=== PATIENT | female | born 1965 ===

== ENCOUNTER 2019-02-28 10:52 | Outpatient (CLI) | payer OTHER | END 2019-02-28 17:13 | disposition home or self-care (01) | LOC: SONOGRAMA 10:52 → MAMO-SONO 11:15 → SONOGRAMA 17:13 | DX: M25.511 Pain in right shoulder (principal) ==

== ENCOUNTER → 2022-04-07 | Emergency (ER) | payer OTHER ==
[~2022-04-07] VITALS: Ht 170.2 cm; Wt 98.9 kg
[~2022-04-07] MED LIST: CHILDREN'S5 MG/5 M1 PO; MUCINEX DM ER1 EAC1 PO; OMEPRAZOLE-BIC1 EACH PO; ZITHROMAX500 MG PO
== END | disposition home or self-care (01) ==
LOC: ER 11:42
DX: J32.9 Chronic sinusitis, unspecified (principal); Z20.822 Contact with and (suspected) exposure to COVID-19; Z88.0 Allergy status to penicillin

== ENCOUNTER 2022-11-18 15:42 | Emergency (ER) | payer OTHER ==
[~2022-11-18] VITALS: Ht 152.4 cm; Wt 81.6 kg
[2022-11-18] MEDS ORDERED: ZITHROMAX500 MG PO (18:15)
[2022-11-18] MEDS ORDERED: MEDROLPACK PO (18:22)
== END 2022-11-18 19:01 | disposition home or self-care (01) ==
LOC: ER 15:42
PROVIDERS: General Practice
DX: R04.0 Epistaxis (principal); Z88.0 Allergy status to penicillin